=== PATIENT | female | born 1970 | race African-American/Black ===

== ENCOUNTER 2018-09-27 21:10 | Emergency (ER) | payer BC ==
[~2018-09-27] VITALS: Ht 167.6 cm; Wt 68.0 kg
[~2018-09-27 21:10] MED LIST: CELEXA20 MG PO; COZAAR 25 MG TA25 M1 PO
[2018-09-27 21:53] LABS: ABSOLUTE NEUTROPHILS 7.3 thou/uL (1.4-8.2); BASOPHILS 0.6 % (0.0-2.0); EOSINOPHILS 0.8 % (0.0-3.0); HEMATOCRIT 39.9 % (37.0-47.0); HEMOGLOBIN 12.8 gm/dL (12.0-15.0); LYMPHOCYTES 25.2 % (24.0-44.0); MCH 23.5 pg (26.0-34.0); MCHC 32.1 g/dL (28.0-37.0); MONOCYTES 7.1 % (1.0-8.0); PLATELET COUNT 342 thou/uL (150-400); POLYS 66.3 % (36.0-66.0); RBC 5.47 mil/uL (4.20-5.00); RDW 13.4 % (10.5-14.5); WBC 11.1 thou/uL (4.0-11.0)
[2018-09-27 21:53] LABS: URINE BILIRUBIN NEGATIVE (Negative); URINE BLOOD NEGATIVE (Negative); URINE CLARITY CLEAR; URINE COLOR YELLOW; URINE GLUCOSE-RANDOM* NEGATIVE (Negative); URINE KETONES NEGATIVE (Negative); URINE LEUKOCYTES-REFLEX NEGATIVE (Negative); URINE NITRITE-REFLEX NEGATIVE (Negative); URINE PROTEIN (DIPSTICK) NEGATIVE (Negative); URINE SPECIFIC GRAVITY 1.025 (1.005-1.035); URINE UROBILINOGEN 0.2 E.U./dl (0.2-1.0)
[2018-09-27 21:54] LABS: CALCIUM 9.6 mg/dL (8.5-10.1); POTASSIUM 3.5 mmol/L (3.5-5.1)
[2018-09-27 22:00] LABS: ALBUMIN 4.4 g/dL (3.4-5.0); DIRECT BILIRUBIN 0.1 mg/dL (<0.1-0.3); TOTAL BILIRUBIN 0.3 mg/dL (<0.1-1.0)
[2018-09-28] MEDS ORDERED: KRISTALOSE20 GM PO (00:49)
[2018-09-28] MEDS ORDERED: BENTYL 20 MG TA20 M1 PO (00:49)
[2018-09-28 01:01] VITALS: BP 115/67
== END 2018-09-28 01:02 | disposition home or self-care (01) ==
LOC: ER 21:10
PROVIDERS: Emergency Medicine
DX: K59.00 Constipation, unspecified (principal); I10 Essential (primary) hypertension; Z88.0 Allergy status to penicillin; Z90.89 Acquired absence of other organs